=== PATIENT | male | born 1940 | race Caucasian/White ===

== ENCOUNTER 2017-09-26 06:35 | Inpatient (IN) | payer OTHER ==
[~2017-09-26] VITALS: Ht 172.7 cm; Wt 58.8 kg
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
--- NOTE | ~2017-09-26 | 2DMMODE ---
[facility] [address] [place] [address] 2 D/M-MODE ECHOCARDIOGRAM Name: MOONYEMAGALIE FRANCISCO JAVIER Room #: 211-P [facility] IN M.R.#: [id number] Admission: 09/26/17 Attend Phys: Irving Bunch, Discharge: Date of : 38 Date of Service: 09/27/17 1151 Report #: [id number] THIS REPORT FOR: //name// APPROVED REPORT Study performed: 09/27/2017 10:53:55 EXAM: Comprehensive 2D, Doppler, and color-flow Echocardiogram Patient Location: Bedside Room #: 211 Status: routine BSA: 1.71 BP: 143/68 mmHg Other Information Study Quality: Technically Difficult Technically limited study due to lung disease, uncooperative patient. Indications Dyspnea Chest Pain Hypertension/HDD 2D Dimensions RVDd: 26.97 mm LVEF(%): 71.87 (>50%) IVSd: 11.76 (7-11mm) LVOT Diam: 19.00 (18-24mm) LVDd: 42.07 mm PWd: 10.88 (7-11mm) LVDs: 24.94 (25-40mm) Aortic Root: 35.40 mm Shrestha's LVEF: 71.87 % Volumes Left Atrial Volume (Systole) Single Plane 4CH: 45.26 mL Single Plane 2CH: 37.47 mL LA ESV Index: 24.00 mL/m2 Aortic Valve AoV Peak Robel.: 1.17 m/s AO Peak Gr.: 5.49 mmHg LVOT Max P.61 mmHg LVOT Max V: 0.95 m/s SYDNEY Vmax: 2.30 cm2 [facility] [address] [place] [address] 2 D/M-MODE ECHOCARDIOGRAM Name: MOONEYMAGALIE JANGEST Room #: [facility] IN [facility].#: [id number] Admission: 09/26/17 Attend Phys: Irving Bunch, Discharge: Date of : 38 Date of Service: 09/27/17 1151 Report #: [id number] Mitral Valve E/A Ratio: 0.8 MV Decel. Time: 261.28 ms MV E Max Robel.: 0.60 m/s MV A Robel.: 0.76 m/s MV PHT: 75.77 ms IVRT: 124.57 ms Pulmonary Valve PV Peak Robel.: 1.30 m/s PV Peak Gr.: 6.79 mmHg Pulmonary Vein P Vein S: 0.30 m/s P Vein D: 0.68 m/s P Vein S/D Ratio: 0.44 Left Ventricle The left ventricle is normal size. There is normal LV segmental wall motion. There is normal left ventricular wall thickness. The left ventricular systolic function is normal. The left ventricular ejection fraction is within the normal range. LVEF is 60-65%. Mild diastolic dysfunction is present (impaired relaxation pattern). Right Ventricle The right ventricle is normal size. Right ventricular systolic function appears grossly normal. Atria The left atrium size is normal. The right atrium size is normal. Aortic Valve Aortic valve is mildly sclerotic No aortic regurgitation is present. There is no aortic valvular stenosis. Mitral Valve The mitral valve is normal in structure. There is no mitral valve regurgitation noted. No evidence of mitral valve stenosis. Tricuspid Valve The tricuspid valve is normal in structure. There is no tricuspid valve regurgitation noted. Unable to assess PA pressure. Pulmonic Valve The pulmonary valve is normal in structure. There is no pulmonic [facility] [address] [place] [address] 2 D/M-MODE ECHOCARDIOGRAM Name: MAGALIE MOONEY Room #: 211-P [facility] IN .R.#: [id number] Admission: 09/26/17 Attend Phys: Irving Bunch, Discharge: Date of : 38 Date of Service: 09/27/17 1151 Report #: [id number] valvular regurgitation. Great Vessels The aortic root is normal in size. Ascending aorta is not well visualized. The inferior vena cava is not visualized. Pericardium There is no pericardial effusion. <Conclusion> The left ventricular systolic function is normal. There is normal LV segmental wall motion. LVEF is 60-65%. Mild diastolic dysfunction Aortic valve is mildly sclerotic. No aortic valvular stenosis or insufficiency. The mitral valve is normal in structure. No mitral valve regurgitation noted. There is no pericardial effusion. <ELECTRONICALLY SIGNED> By: Kel Chen MD, FACC 09/27/17 1151 115 115 Kel Chen MD, FACC /INF
--- NOTE | ~2017-09-26 | EKG ---
[place] [address] [facility] [place] [address] ELECTROCARDIOGRAM REPORT Name: MOONEYMAGALIE Room #: 170-10 ADM IN M.R.#: [id number] Admission: 09/26/17 Attend Phys: Irving Bunch MD Discharge: Date of : 38 Report #: [id number] THIS REPORT FOR: //name// [facility] ED Test Date: 2017-09-26 Test Time: 06:57:25 Pat Name: MAGALIE MOONEY Department: Room: 170 Gender: M Icer Hand: JAMAL : 1940 Requested By: Elayne Rios Order Number: [id number] MD: Kel Chen Measurements Intervals [place] Rate: 59 P: 73 AK: 209 QRS: 74 QRSD: 140 T: 53 QT: 435 QTc: 431 Interpretive Statements Sinus rhythm Right bundle branch block Compared to ECG 11/15/2016 09:51:35 No significant changes Electronically Signed On 09-26-2017 8:44:30 DIRECTOR QUALITY SYSTEMS by Kel Chen [email or web address] <ELECTRONICALLY SIGNED> By: Kel Chen MD, [facility] 09/26/17 0844 D: 0157 0657 Kel Chen MD, FACC /EPI
--- NOTE | ~2017-09-26 | EKG ---
[address] [address] ELECTROCARDIOGRAM REPORT Name: MAGALIE MOONEY Room #: 211-P ADM IN M.R.#: [id number] Admission: 09/26/17 Attend Phys: Irving Bunch MD Discharge: Date of : 38 Report #: [id number] THIS REPORT FOR: //name// [facility] Test Date: 2017-09-27 Test Time: 09:30:16 Pat Name: MAGALIE MOONEY Department: Room: 211 P Gender: M Liquid Yeast Supervisor: JAMES : 1940 Requested By: Kel Chen Order Number: [id number] MD: Humberto Vasquez Measurements Intervals [place] Rate: 59 P: 74 ID: 191 QRS: 63 QRSD: 117 T: 67 QT: 425 QTc: 421 Interpretive Statements Sinus rhythm Nonspecific intraventricular conduction delay Low voltage, extremity leads Compared to ECG 09/26/2017 06:57:25 Intraventricular conduction delay now present Low QRS voltage now present Right bundle-branch block no longer present Electronically Signed On 09-27-2017 15:05:28 CIRCUIT RIDER by Humberto Vasquez [email or web address] <ELECTRONICALLY SIGNED> By: Humberto Vasquez MD 09/27/17 1505 0930 0930 Humberto Vasquez MD /EPI
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
--- NOTE | ~2017-09-26 | CATHLAB ---
[facility] [employer] [address] INVASIVE PROCEDURE REPORT Name: MAGALIE MOONEY Room #: 211-P [facility] IN M.R.#: [id number] Admission: 09/26/17 Attend Phys: Irving Bunch, Discharge: Date of : 38 Date of Service: 09/28/17 0907 Report #: [id number] THIS REPORT FOR: //name// APPROVED REPORT Patient Details Patient Status: In-Patient Room #: The patient is a 77 year-old male Event Personnel Kel Chen Performance Test Architect, Sabrina Daly, Earl Ferrell [place], Ariel RN almond pan finisher Performed Art Access - R femoral artery* 57815 Initial Mod Sed Same Phys/QHP Gr5y 402126 Coronary Angiography Only [id number] CORANG Hemostasis with Manual pressure Procedure Narrative The patient was brought urgently to the Cardiac Catheterization Laboratory and was prepped and draped in a sterile manner. The Right Groin^ was infiltrated with 1% Lidocaine subcutaneous anesthesia. A PINNACLE 6FR Sheath #[id number] sheath was inserted into the RFA^. Coronary angiography was performed using coronary diagnostic catheters. The right coronary system was accessed and visualized with a JR 4 catheter. The left coronary system was accessed and visualized with a JL 5 catheter. Hemostasis was obtained with manual pressure following sheath removal without any complications. The patient tolerated the procedure well and there were no complications associated with the procedure. A hematoma occurred. Intraoperative Conscious Sedation Sedation start time: 07:16 Case end Time: 07:43 Fentanyl 25.0 mcg Versed 0.5 mg Fluoro Time: 2.39 minutes Dose: DAP 138.00 cGycm2 138 mGy Contrast Type and Amount: Visipaque 50 ml Coronary Angiography The patient's coronary anatomy is right dominant. Diagnostic Cath Left Main 40% distal left main stenosis [facility] [address] [address] INVASIVE PROCEDURE REPORT Name: MAGALIE MOONEY Room #: 211-P [facility] IN M.R.#: [id number] Admission: 09/26/17 Attend Phys: Irving Bunch, Discharge: Date of : 38 Date of Service: 09/28/17 0907 Report #: [id number] LAD 75% ostial LAD stenosis followed by long, densely calcified 75% proximal stenosis Diagonal 1 small, free of significant disease Diagonal 2 small, normal Diagonal 3 small, normal Circumflex Single, large OM branch OM1 40-50% proximal Right Coronary very tortuous in proximal segement 85% mid RCA stenosis with moderate 30-40% distal plaquing R PDA 40% ostial PDA stenosis Left Ventriculography Left Ventriculography was not performed. Thoracic and ascending aorta were very tortuous and densely calcified. Hemodynamics The aortic pressure is 153/67 mmHg with a mean of 104 mmHg. Conclusion 1. Multivessel coronary artery disease 2. Densely calcified and tortuous ascending and thoracic aorta Recommendations Cardiac Rehabilitation Referral Aggressive Medical Therapy <ELECTRONICALLY SIGNED> By: Kel Chen MD, FACC 09/28/17906 6 6 Kel Chen MD, FACC /INF
--- NOTE | ~2017-09-26 | HC ---
[facility] [place] [address] CONSULTATION Name: MAGALIE MOONEY Room #: 211-P [facility] IN M.R.#: [id number] Admission: 09/26/17 Attend Phys: Irving Bunch MD Discharge: 10/02/17 Date of : 38 Report #: [id number] THIS REPORT FOR: //name// CC: Mai Bunch REASON FOR CONSULTATION: Elevated creatinine, known chronic kidney disease. REASON FOR PRESENTATION: Shortness of breath and chest pain. HISTORY OF PRESENT ILLNESS: A 77-year-old with past medical history of end-stage renal disease, hypertension. He sees Dr. Hui in my clinic. His creatinine has been around the range of 4-4.5 as an outpatient. He was seen by Dr. Patel back in 11/2016 here in the hospital. He is known to have hypertension. He had some left-sided chest pain for which he presented to the emergency room for further evaluation and management. No active other symptoms. Specifically, no nausea or vomiting. This was associated with some weakness. No cough or hemoptysis. The chest pain was left-sided, intermittent of pressure-like characteristic. Nuclear scan was done yesterday and was intermediate probability of ischemia. I am being asked to evaluate him for his chronic kidney disease. Of note is that the patient has a functioning right-sided AV fistula. PAST MEDICAL HISTORY: 1. Hypertension. 2. End-stage renal disease. 3. Anemia. ALLERGIES: PENICILLIN. FAMILY HISTORY: Significant for hypertension. SOCIAL HISTORY: . He used to work in a [employer]. He quit smoking in 2009. MEDICATIONS: 1. Metoprolol. 2. Valsartan. 3. Spironolactone. 4. Amlodipine. REVIEW OF SYSTEMS: GENERAL: No fever or chills. CARDIOVASCULAR: Significant for chest pain as per the history of present illness. PULMONARY: No cough or hemoptysis. GASTROINTESTINAL: No nausea or vomiting. [facility] [address] [place] [address] CONSULTATION Name: MAGALIE MOONEY Room #: 211-P [facility] IN ..#: [id number] Admission: 09/26/17 Attend Phys: Irving Bunch MD Discharge: 10/02/17 Date of : 38 Report #: [id number] GENITOURINARY: No frequency, no urgency. PHYSICAL EXAMINATION: VITAL SIGNS: Temperature 36.4, pulse rate 65, respiratory rate 18, blood pressure 140/60. HEAD AND NECK: No jugular venous distention, no bruit, no thyromegaly. CHEST: Clear to auscultation bilaterally. CARDIOVASCULAR: Regular with no rub. ABDOMEN: Soft, nontender. LOWER EXTREMITIES: No edema. LABORATORY VALUES: Reviewed. Sodium 140, potassium 6, chloride 108, BUN 66, creatinine 5.4. Hemoglobin 12. ASSESSMENT, IMPRESSION AND PLAN: 1. Chronic kidney disease, end-stage renal disease. 2. Hypertension. 3. Nonspecific chest pain. 4. The patient seems to be at his baseline; however, he does have some sort of hyperkalemia and I will accordingly treat. 5. Discontinue IV fluid. 6. Stay off valsartan and spironolactone for now given his hyperkalemia. 7. Blood pressure control. 8. Discussed with the patient the risk of contrast-induced nephropathy and the fact that he might go on dialysis if he receives contrast. We will wait for further cardiac recommendations and act upon accordingly. <ELECTRONICALLY SIGNED> By: Raymundo Spaulding MD 10/03/17 0939 0904 1114 Raymundo Spaulding MD /nt
[~2017-09-26 06:35] MED LIST: ACYCLOVIR 400400 MG PO; ALDACTONE25 MG PO; AMLODIPINE BESY10 MG PO; DIOVAN 80 MG TA80 M1 PO; FISH OIL 1,001000 M2 PO; PRED FORTE 1% EY5 M1 OP; TOPROL XL50 MG PO; VITAMIN D1000 UNI1 PO
[2017-09-26 06:36] VITALS: BP 138/61
[2017-09-26 07:08] LABS: ABSOLUTE NEUTROPHILS 4.5 thou/uL (1.4-8.2); BASOPHILS 1.4 % (0.0-2.0); EOSINOPHILS 7.7 % (0.0-3.0); HEMATOCRIT 31.5 % (42.0-52.0); HEMOGLOBIN 10.9 gm/dL (14.0-18.0); MCH 29.8 pg (26.0-34.0); MCHC 34.7 g/dL (28.0-37.0); MONOCYTES 7.7 % (1.0-8.0); PLATELET COUNT 200 thou/uL (150-400); POLYS 61.2 % (36.0-66.0); RBC 3.66 mil/uL (4.50-6.00); RDW 13.8 % (10.5-14.5); WBC 7.4 thou/uL (4.0-11.0)
[2017-09-26 07:25] LABS: ANION GAP 10 mmol/L (7-16); BUN 68 mg/dL (7-18); CALCIUM 9.7 mg/dL (8.5-10.1); CHLORIDE 108 mmol/L (98-107); CO2 23 mmol/L (21-32); CREATININE 5.4 mg/dL (0.7-1.3); GLUCOSE 104 mg/dL (74-106); POTASSIUM 5.2 mmol/L (3.5-5.1); SODIUM 141 mmol/L (136-145)
[2017-09-26 07:34] LABS: TROPONIN-I < 0.04 ng/mL (<0.06)
[2017-09-26 09:45] VITALS: BP 127/60
[2017-09-26] MEDS ORDERED: OMEPRAZOLE 20 M20 M1 PO (09:52)
[2017-09-26] MEDS ORDERED: FLONASE 0.05%50 MCG NASAL (09:52)
[2017-09-26] MEDS ORDERED: LIPITOR 20 MG T20 M1 PO (09:52)
[2017-09-26] MEDS ORDERED: MIRALAX17 GM PO (09:53)
[2017-09-26] MEDS ORDERED: CLARITIN10 MG PO (09:53)
[2017-09-26 19:04] VITALS: BP 148/72
[2017-09-26 19:20] VITALS: BP 147/76
[2017-09-27 00:53] VITALS: BP 157/72
[2017-09-27 06:11] VITALS: BP 143/68
[2017-09-27 08:20] LABS: MCH 29.8 pg (26.0-34.0); MCHC 33.3 g/dL (28.0-37.0); MCV 89.5 fL (80.0-100.0); RBC 4.02 mil/uL (4.50-6.00); RDW 13.8 % (10.5-14.5); WBC 9.1 thou/uL (4.0-11.0)
[2017-09-27 08:31] LABS: CALCIUM 9.7 mg/dL (8.5-10.1); CREATININE 5.4 mg/dL (0.7-1.3)
[2017-09-27 09:31] LABS: CHOLESTEROL 262 mg/dL (<200); HDL CHOLESTEROL 43 mg/dL (>40); LDL CHOLESTEROL 191 mg/dL (<100); TC:HDL 6.1 Ratio (Not establshd); TRIGLYCERIDE 142 mg/dL (<150); VLDL 28 mg/dL (<40)
[2017-09-27 09:49] VITALS: BP 134/70
[2017-09-27 11:37] VITALS: BP 128/55
[2017-09-27 15:32] VITALS: BP 141/65
[2017-09-27 20:30] VITALS: BP 143/71
[2017-09-28] VITALS: BP 123/70
[2017-09-28 04:30] VITALS: BP 152/84
[2017-09-28 04:47] LABS: ALBUMIN 3.2 g/dL (3.4-5.0); CALCIUM 8.9 mg/dL (8.5-10.1); CREATININE 5.3 mg/dL (0.7-1.3); PHOSPHORUS 4.8 mg/dL (2.5-4.9); POTASSIUM 4.9 mmol/L (3.5-5.1)
[2017-09-28 11:41] VITALS: BP 149/62
[2017-09-28 15:09] VITALS: BP 127/67
[2017-09-28 19:56] VITALS: BP 121/71
[2017-09-29 04:24] VITALS: BP 132/69
[2017-09-29 05:25] LABS: BASOPHILS 0.5 % (0.0-2.0); EOSINOPHILS 4.7 % (0.0-3.0); HEMATOCRIT 29.1 % (42.0-52.0); LYMPHOCYTES 19.8 % (24.0-44.0); MCH 29.9 pg (26.0-34.0); MCHC 34.3 g/dL (28.0-37.0); MONOCYTES 6.4 % (1.0-8.0); PLATELET COUNT 220 thou/uL (150-400); POLYS 68.6 % (36.0-66.0); RBC 3.34 mil/uL (4.50-6.00); RDW 13.8 % (10.5-14.5); WBC 8.8 thou/uL (4.0-11.0)
[2017-09-29 05:30] LABS: CALCIUM 8.9 mg/dL (8.5-10.1); CREATININE 5.3 mg/dL (0.7-1.3); POTASSIUM 4.3 mmol/L (3.5-5.1)
[2017-09-29 07:50] VITALS: BP 134/65
[2017-09-29 11:13] VITALS: BP 122/64
[2017-09-29 15:00] VITALS: BP 111/66
[2017-09-29] MEDS ORDERED: ATORVASTATIN CA40 MG PO (15:24)
[2017-09-29] MEDS ORDERED: IMDUR 60 MG TAB60 M1 PO (15:24)
[2017-09-29 19:46] VITALS: BP 117/58
[2017-09-30 04:35] VITALS: BP 129/74
[2017-09-30 05:37] LABS: ALBUMIN 3.4 g/dL (3.4-5.0); CALCIUM 8.8 mg/dL (8.5-10.1); CREATININE 5.3 mg/dL (0.7-1.3); PHOSPHORUS 5.4 mg/dL (2.5-4.9); POTASSIUM 4.2 mmol/L (3.5-5.1)
[2017-09-30 08:10] VITALS: BP 137/70
[2017-09-30 19:47] VITALS: BP 136/69
[2017-10-01 03:20] LABS: ABSOLUTE NEUTROPHILS 4.8 thou/uL (1.4-8.2); BASOPHILS 0.7 % (0.0-2.0); EOSINOPHILS 6.1 % (0.0-3.0); HEMATOCRIT 25.6 % (42.0-52.0); HEMOGLOBIN 8.8 gm/dL (14.0-18.0); LYMPHOCYTES 22.7 % (24.0-44.0); MCH 29.8 pg (26.0-34.0); MCHC 34.3 g/dL (28.0-37.0); MCV 86.9 fL (80.0-100.0); MONOCYTES 7.8 % (1.0-8.0); PLATELET COUNT 192 thou/uL (150-400); POLYS 62.7 % (36.0-66.0); RBC 2.94 mil/uL (4.50-6.00); RDW 13.9 % (10.5-14.5); WBC 7.7 thou/uL (4.0-11.0)
[2017-10-01 03:39] LABS: CALCIUM 8.6 mg/dL (8.5-10.1); CREATININE 5.2 mg/dL (0.7-1.3); POTASSIUM 4.1 mmol/L (3.5-5.1)
[2017-10-01 04:23] VITALS: BP 141/61
[2017-10-01 08:00] VITALS: BP 128/57
[2017-10-01 09:07] LABS: GLOBULIN TOTAL 2.9 g/dL (2.2-3.9); M-SPIKE Not Observed g/dL (Not Observed)
[2017-10-01 12:00] VITALS: BP 114/51
[2017-10-01 16:00] VITALS: BP 110/61
[2017-10-01 21:06] VITALS: BP 130/65
[2017-10-02 04:23] LABS: ALBUMIN 3.3 g/dL (3.4-5.0); CALCIUM 8.8 mg/dL (8.5-10.1); CREATININE 5.1 mg/dL (0.7-1.3); PHOSPHORUS 4.9 mg/dL (2.5-4.9); POTASSIUM 4.1 mmol/L (3.5-5.1)
[2017-10-02 05:12] VITALS: BP 138/72
[2017-10-02 08:51] VITALS: BP 164/80
[2017-10-02 09:04] VITALS: BP 164/80
[2018-02-28] MEDS ORDERED: RANEXA500 MG PO (13:01)
[2018-02-28] MEDS ORDERED: SYSTANE 0.3-0.1 EACH OPHTHALMIC (13:01)
[2018-02-28] MEDS ORDERED: VITAMIN D31000 UNI2 PO (13:02)
[2018-02-28] MEDS ORDERED: TYLENOL325 M1 PO (13:03)
[2018-02-28] MEDS ORDERED: NEPHROCAPS SOFT1 CAP PO (13:04)
[2018-02-28] MEDS ORDERED: MIRALAX17 G1 PO (13:06)
[2018-02-28] MEDS ORDERED: MILK OF MA400 MG/5 M PO ×2 (13:07→13:08)
[2018-02-28] MEDS ORDERED: CITRATE OF MAG296 M1 PO (13:07)
== END 2017-10-02 13:55 | DRG 286 ==
LOC: ER 06:35 → EROBS 07:53 → 2N 07:53 → EROBS 13:40 → 2N 18:56
PROVIDERS: Emergency Medicine; Family Medicine; Hospitalist; Internal Medicine; Psychiatry & Neurology Neurology
PROC: 4A023N7 Measurement of Cardiac Sampling and Pressure, Left Heart, Percutaneous Approach (ICD-10-PCS; principal; 2017-09-28)
PROC: B2111ZZ Fluoroscopy of Multiple Coronary Arteries using Low Osmolar Contrast (ICD-10-PCS; principal; 2017-09-28)
DX: I25.110 Atherosclerotic heart disease of native coronary artery with unstable angina pectoris (principal); N18.6 End stage renal disease; I12.0 Hypertensive chronic kidney disease with stage 5 chronic kidney disease or end stage renal disease; N17.9 Acute kidney failure, unspecified; E87.5 Hyperkalemia; E78.5 Hyperlipidemia, unspecified; Z96.1 Presence of intraocular lens; R09.89 Other specified symptoms and signs involving the circulatory and respiratory systems; D63.8 Anemia in other chronic diseases classified elsewhere; J44.9 Chronic obstructive pulmonary disease, unspecified; Z98.42 Cataract extraction status, left eye; Z91.81 History of falling; Z79.899 Other long term (current) drug therapy; Z88.0 Allergy status to penicillin; Z87.891 Personal history of nicotine dependence; Z82.49 Family history of ischemic heart disease and other diseases of the circulatory system; Z98.41 Cataract extraction status, right eye
CPT/HCPCS: 10081

== ENCOUNTER 2018-01-08 04:56 | Inpatient (IN) | payer OTHER ==
[~2018-01-08] VITALS: Ht 172.7 cm; Wt 58.1 kg
--- NOTE | ~2018-01-08 | EKG ---
[address] [place] [address] ELECTROCARDIOGRAM REPORT Name: IBRAHIMA MOONEYTALAT VILAEST Room #: 219-P ADM IN M.R.#: [id number] Admission: 01/08/18 Attend Phys: Irving Bunch MD Discharge: Date of : 38 Report #: [id number] THIS REPORT FOR: //name// [facility] ED Test Date: 2018-01-08 Test Time: 05:14:01 Pat Name: MAGALIE MOONEY Department: Room: 219 Gender: M Integrated Logistics Support Manager: HELEN : 1940 Requested By: Chilo Carrizales Order Number: [id number] MD: Kel Chen Measurements Intervals [place] Rate: 67 P: 76 SD: 206 QRS: 81 QRSD: 154 T: 44 QT: 465 QTc: 491 Interpretive Statements Sinus rhythm Right bundle branch block Compared to ECG 09/27/2017 09:30:16 Right bundle-branch block now present Electronically Signed On 01-08-2018 9:12:28 CDT by Kel Chen [email or web address] <ELECTRONICALLY SIGNED> By: Kel Chen MD, [facility] 01/08/1812 Kel Chen MD, [facility] /EPI
--- NOTE | ~2018-01-08 | HC ---
[facility] [place] [address] CONSULTATION Name: MAGALIE MOONEY Room #: 219-P [facility] IN M.R.#: [id number] Admission: 01/08/18 Attend Phys: Irving Bunch MD Discharge: 01/11/18 Date of : 38 Report #: [id number] THIS REPORT FOR: //name// CC: Neil Bunch DATE OF SERVICE: 01/08/2018 ATTENDING PHYSICIAN: Dr. Bunch. REASON FOR CONSULTATION: End-stage renal disease. HISTORY OF PRESENT ILLNESS: This 77-year-old gentleman with end-stage renal disease, has been on dialysis for 6-7 weeks. He has been quite weak actually for several months, apparently got a bit better when he had advanced health care in October, but with dialysis, particularly post-dialysis, has been even weaker and had several falls and comes in for further evaluation. PAST MEDICAL HISTORY: Longstanding hypertension, end-stage renal disease, anemia. Rather severe coronary artery disease, multivessel, but felt to be a candidate only for medical therapy, turned down for surgical therapy by the Cardiothoracic Service. SOCIAL HISTORY: He is a former smoker, but he quit. REVIEW OF SYSTEMS: GENERAL: He has been very weak. EYES: His vision is okay. ENT: Hearing okay, swallows okay. ENDOCRINE: No diabetes. RESPIRATORY: Does get a little bit short-winded. CARDIAC: Gets occasional chest pain, possibly angina. No swelling in the legs. GASTROINTESTINAL: No nausea, vomiting, diarrhea. GENITOURINARY: Continues to make quite a bit of urine. MUSCULOSKELETAL: No joint pain or arthritis. SKIN: No skin rashes. NEUROLOGIC: Generalized weakness, but no seizure, syncope or stroke. PHYSICAL EXAMINATION: GENERAL: The patient is a somewhat weak appearing elderly gentleman. SKIN: Unremarkable. SKELETAL: Nonobese. HEENT: Extraocular movements are full. No scleral icterus. Hearing and vision intact. Mucous membranes moist. Tongue, buccal mucosa benign. NECK: Supple. CHEST: Clear to auscultation. [facility] [address] [facility] [place] [address] CONSULTATION Name: MAGALIE MOONEY Room #: 219-P [facility] IN M.R.#: [id number] Admission: 01/08/18 Attend Phys: Irving Bunch MD Discharge: 01/11/18 Date of : 38 Report #: [id number] HEART: Regular. ABDOMEN: Soft and nontender, without bruits, masses or organomegaly. EXTREMITIES: Show no peripheral edema. NEUROLOGIC: Shows mild generalized weakness. LABORATORY DATA: Hemoglobin 10.4. Sodium 139, potassium 3.9, chloride bicarbonate 25, BUN 78, creatinine 9.3. Troponin I is 0.51, which is elevated from 1.04 previously. CPK is not measured. ASSESSMENT: 1. End-stage renal disease. We will continue dialysis. We will try cooler dialysate, no ultrafiltration today and see how he does with that. 2. Generalized weakness, unknown etiology. 3. Severe coronary artery disease, multivessel. 4. Elevated troponin. <ELECTRONICALLY SIGNED> By: Neil Hawthorne MD 01/14/18 1022 1110 1823 Neil Hawthorne MD /nt
[~2018-01-08 04:56] MED LIST changes: +ATORVASTATIN CA40 MG PO; +CLARITIN10 MG PO; +FLONASE 0.05%50 MCG NASAL; +IMDUR 60 MG TAB60 M1 PO; +LIPITOR 20 MG T20 M1 PO; +MIRALAX17 GM PO; +OMEPRAZOLE 20 M20 M1 PO
[2018-01-08 05:03] VITALS: BP 88/55
[2018-01-08 05:47] LABS: ABSOLUTE NEUTROPHILS 7.8 thou/uL (1.4-8.2); BASOPHILS 0.9 % (0.0-2.0); EOSINOPHILS 0.3 % (0.0-3.0); HEMATOCRIT 30.8 % (42.0-52.0); HEMOGLOBIN 10.4 gm/dL (14.0-18.0); LYMPHOCYTES 13.2 % (24.0-44.0); MCH 29.4 pg (26.0-34.0); MCV 86.7 fL (80.0-100.0); MONOCYTES 6.5 % (1.0-8.0); PLATELET COUNT 253 thou/uL (150-400); POLYS 79.1 % (36.0-66.0); RBC 3.55 mil/uL (4.50-6.00); RDW 15.6 % (10.5-14.5); WBC 9.9 thou/uL (4.0-11.0)
[2018-01-08 05:50] LABS: CALCIUM 9.5 mg/dL (8.5-10.1); CREATININE 9.3 mg/dL (0.7-1.3); POTASSIUM 3.9 mmol/L (3.5-5.1)
[2018-01-08 05:59] LABS: TROPONIN-I 0.51 ng/mL (<0.06)
[2018-01-08 06:05] LABS: URINE BILIRUBIN NEGATIVE (Negative); URINE BLOOD 3+ (Negative); URINE CLARITY CLEAR; URINE COLOR YELLOW; URINE GLUCOSE-RANDOM* NEGATIVE (Negative); URINE KETONES NEGATIVE (Negative); URINE LEUKOCYTES-REFLEX NEGATIVE (Negative); URINE NITRITE-REFLEX NEGATIVE (Negative); URINE PROTEIN (DIPSTICK) 2+ (Negative); URINE UROBILINOGEN 0.2 E.U./dl (0.2-1.0)
[2018-01-08 06:15] LABS: CASTS None Seen /LPF (None Seen)
[2018-01-08 06:16] LABS: BACTERIA-REFLEX 1-9 Few /HPF (None Seen); CRYSTALS None Seen /LPF (None Seen); SQUAMOUS 0-3 Few /LPF (0-3); URINE RBC 0-2 Rare /HPF (0-2); URINE WBC-REFLEX 0-5 Rare /HPF (0-5)
[2018-01-08 07:41] LABS: APTT 24.5 Seconds (24.5-32.8); INR 1.1; PROTIME 10.4 Seconds (9.3-11.4)
[2018-01-08 07:56] VITALS: BP 102/60
[2018-01-08 08:37] VITALS: BP 114/51
[2018-01-08 10:01] VITALS: BP 123/66
[2018-01-08] MEDS ORDERED: ASPIR 8181 MG PO (14:53)
[2018-01-08] MEDS ORDERED: NITROSTAT0.4 M1 SUBLING (14:56)
[2018-01-08] MEDS ORDERED: PEPCID20 MG PO (14:57)
[2018-01-08] MEDS ORDERED: SYSTANE1 EACH OPHTHALMIC (14:59)
[2018-01-08] MEDS ORDERED: GAS-X125 M1 PO (15:00)
[2018-01-08] MEDS ORDERED: CIPROFLOXIN HC2.5 M1 OPHTHALMIC (15:17)
[2018-01-08 20:28] VITALS: BP 120/58
[2018-01-08 23:33] VITALS: BP 131/61
[2018-01-09 04:14] LABS: ALBUMIN 2.7 g/dL (3.4-5.0); PHOSPHORUS 3.6 mg/dL (2.5-4.9); POTASSIUM 4.3 mmol/L (3.5-5.1)
[2018-01-09 04:16] LABS: CREATININE 5.2 mg/dL (0.7-1.3)
[2018-01-09 04:22] VITALS: BP 149/75
[2018-01-09 08:04] VITALS: BP 143/56
[2018-01-09 11:23] VITALS: BP 103/68
[2018-01-09 19:29] VITALS: BP 105/57
[2018-01-10 04:06] VITALS: BP 134/72
[2018-01-10 08:41] VITALS: BP 140/66
[2018-01-10 12:48] VITALS: BP 123/74
[2018-01-10 16:22] VITALS: BP 114/57
[2018-01-10 19:56] VITALS: BP 118/66
[2018-01-11 04:46] VITALS: BP 135/67
[2018-01-11 04:57] LABS: HEMATOCRIT 31.3 % (42.0-52.0); HEMOGLOBIN 10.4 gm/dL (14.0-18.0); MCH 29.1 pg (26.0-34.0); MCHC 33.1 g/dL (28.0-37.0); MCV 87.8 fL (80.0-100.0); RBC 3.56 mil/uL (4.50-6.00); RDW 15.7 % (10.5-14.5); WBC 8.2 thou/uL (4.0-11.0)
[2018-01-11] MEDS ORDERED: RANEXA500 MG PO (07:24)
[2018-01-11 11:00] VITALS: BP 106/61
== END 2018-01-11 14:15 | DRG 280 ==
LOC: ER 04:56 → 2N 06:49 → EROBS 06:49 → 2N 08:53
PROVIDERS: Emergency Medicine; Internal Medicine Nephrology
DX: I21.4 Non-ST elevation (NSTEMI) myocardial infarction (principal); N18.6 End stage renal disease; I12.0 Hypertensive chronic kidney disease with stage 5 chronic kidney disease or end stage renal disease; N39.0 Urinary tract infection, site not specified; I25.10 Atherosclerotic heart disease of native coronary artery without angina pectoris; J44.9 Chronic obstructive pulmonary disease, unspecified; Z96.1 Presence of intraocular lens; I95.9 Hypotension, unspecified; E78.5 Hyperlipidemia, unspecified; H10.9 Unspecified conjunctivitis; Z99.2 Dependence on renal dialysis; Z79.82 Long term (current) use of aspirin; Z79.899 Other long term (current) drug therapy; Z98.42 Cataract extraction status, left eye; Z98.41 Cataract extraction status, right eye; Z87.891 Personal history of nicotine dependence; Z88.0 Allergy status to penicillin; Z88.8 Allergy status to other drugs, medicaments and biological substances
CPT/HCPCS: 10081; 32100

== ENCOUNTER 2018-01-18 11:47 | Inpatient (IN) | payer OTHER ==
[~2018-01-18] VITALS: Ht 172.7 cm; Wt 62.1 kg
--- NOTE | ~2018-01-18 | O ---
[facility] [place] [address] OPERATIVE REPORT Name: MAGALIE MOONEY Room #: 429-P [facility] IN M.R.#: [id number] Admission: 01/18/18 Attend Phys: Oleg Jo MD Discharge: Date of : 38 Report #: [id number] THIS REPORT FOR: //name// CC: Oleg Bunch DATE OF SERVICE: 01/19/2018 PREOPERATIVE DIAGNOSIS: Left hip femoral neck fracture. POSTOPERATIVE DIAGNOSIS: Left hip femoral neck fracture. PROCEDURE: Left hip hemiarthroplasty. SURGEON: Maykel Baca M.D. ETL SOFTWARE ENGINEER: Hannah Castillo. ANESTHESIA: General. DRAINS: No drains. TOURNIQUET TIME: Zero. ESTIMATED BLOOD LOSS: 500 mL. COMPLICATIONS: There were no complications. DESCRIPTION OF PROCEDURE: The patient was brought to the operating room where he was placed under general anesthesia. Once under adequate general anesthesia, he was placed through a lateral decubitus position on the operative table. The left hip was then prepped and draped in a sterile manner. A 14 cm longitudinal incision was made overlying the greater trochanter of the hip to dissect down to the tensor fascia, which was incised in line with the incision exposing the posterior hip. A posterior approach to the hip was then made elevating the piriformis along with the posterior external rotators off the posterior femoral neck. The joint capsule was opened, and the femoral neck fracture was then exposed. The femoral head was extracted utilizing a Orta elevator. Subsequently, the femoral neck was cut to length with an oscillating saw. Subsequent reaming and broaching to a size 9 stem and trials for a size 9 stem with a +0 neck and a 49 mm head was then achieved. Once complete, this was stable to abduction, internal rotation, stretches. This was then removed. The wound was irrigated copiously, and the final components were then placed, which was a size 9 stem, +0 neck and 49 mm femoral head. The wound was irrigated copiously, and the capsular layer was closed with #2 FiberWire. #5 FiberWire was used to repair the piriformis back to its position in the fossa. The wound [address] [address] OPERATIVE REPORT Name: JESICAMAGALIE FRANCISCO JAVIER Room #: 429-P [facility] IN M.R.#: [id number] Admission: 01/18/18 Attend Phys: Oleg Jo MD Discharge: Date of : 38 Report #: [id number] was irrigated once again copiously. #1 Vicryl was used in the tensor fascia, 2-0 Vicryl in subcutaneous tissues and arin were used for the skin. The wounds were dressed with Xeroform, 4 x 4s, and sterile soft compressive dressing was placed. There were no complications from the procedure. The patient tolerated the procedure well and went to the recovery room without incident. <ELECTRONICALLY SIGNED> By: Maykel Baca MD 01/19/18 1149 1030 1059 Maykel Baca MD /viola
--- NOTE | ~2018-01-18 | HC ---
[facility] [place] [address] CONSULTATION Name: MAGALIE MOONEY Room #: 220-P ADM IN M.R.#: [id number] Admission: 01/18/18 Attend Phys: Irving Bunch MD Discharge: Date of : 38 Report #: [id number] THIS REPORT FOR: //name// CC: Oleg Bunch REASON FOR CONSULTATION: End-stage renal disease. REASON FOR PRESENTATION: Post-fall HISTORY OF PRESENT ILLNESS: A 77-year-old who presented from a alf facility after a fall. He was found to have right hip fracture and admitted for further evaluation and management. He is well known to me. He has end-stage renal disease due to hypertension. He recently started dialysis. He dialyzes every Sunday, and Sunday utilizing his AV fistula. He suffers from major ongoing depression and psych issues and is not communicative. is at bedside. She stated that while in his rehab facility, he fell off the wheelchair and was sent for further evaluation and management where he was found to have the above-mentioned finding. I am being asked to manage before his planned surgery. PAST MEDICAL HISTORY: 1. End-stage renal disease. 2. Hypertension. 3. Coronary artery disease with no intervention. 4. Anemia. ALLERGIES: PENICILLIN. FAMILY HISTORY: Hypertension. SOCIAL HISTORY: He is . He used to work for the [employer]. He quit smoking in 2009. He currently resides in a nursing facility. MEDICATIONS: 1. Famotidine. 2. Lorazepam. 3. Oxycodone. 4. Ranexa. 5. Nitroglycerin. 6. Aspirin. REVIEW OF SYSTEMS: GENERAL: No fever or chills. CARDIOVASCULAR: No chest pain or palpitation. PULMONARY: No cough or hemoptysis. [facility] [address] [place] [address] CONSULTATION Name: JESICAMAGALIE FRANCISCO JAVIER Room #: 220-P [facility] IN ..#: [id number] Admission: 01/18/18 Attend Phys: Irving Bunch MD Discharge: Date of : 38 Report #: [id number] GASTROINTESTINAL: No nausea or vomiting. MUSCULOSKELETAL: As per the history of present illness. PHYSICAL EXAMINATION: VITAL SIGNS: Temperature 37.1, pulse rate 74, blood pressure 149/74. HEAD AND NECK: No jugular venous distention. CHEST: No crackles. CARDIOVASCULAR: Regular, with no rub detected. ABDOMEN: Soft, nontender with no hepatosplenomegaly. LOWER EXTREMITIES: No edema, with intact peripheral pulses Tender left hip area. LABORATORY DATA: Reviewed. Hemoglobin 9.8. Sodium 135, potassium 4, BUN 41, creatinine 6.2. IMAGIN. Chest x-ray reviewed. No acute pulmonary edema. 2. Hip x-ray reviewed, consistent with a fracture. ASSESSMENT, IMPRESSION AND PLAN: 1. End-stage renal disease. 2. Hypertension. 3. Status post fall with left hip fracture. 4. We will coordinate care with the orthopedic team. He should be dialyzing today before surgery, and he is okay to proceed with the planned surgery, and I will decide about dialysis either before or after. 5. Continue his usual medications. <ELECTRONICALLY SIGNED> By: Raymundo Spaulding MD 01/23/18 0817 0755 0857 Raymundo Spaulding MD /nt
[~2018-01-18 11:47] MED LIST changes: +ASPIR 8181 MG PO; +CIPROFLOXIN HC2.5 M1 OPHTHALMIC; +GAS-X125 M1 PO; +NITROSTAT0.4 M1 SUBLING; +PEPCID20 MG PO; +RANEXA500 MG PO; +SYSTANE1 EACH OPHTHALMIC
[2018-01-18 11:50] VITALS: BP 144/70
[2018-01-18] MEDS ORDERED: PERCOCET PO (12:49)
[2018-01-18] MEDS ORDERED: ATIVAN1 MG PO (12:50)
[2018-01-18 13:20] LABS: HEMATOCRIT 28.7 % (42.0-52.0); HEMOGLOBIN 9.8 gm/dL (14.0-18.0); MCH 29.4 pg (26.0-34.0); MCHC 34.2 g/dL (28.0-37.0); RBC 3.33 mil/uL (4.50-6.00); RDW 15.6 % (10.5-14.5); WBC 9.5 thou/uL (4.0-11.0)
[2018-01-18 13:41] LABS: APTT 27.7 Seconds (24.5-32.8); INR 1.1; PROTIME 11.1 Seconds (9.3-11.4)
[2018-01-18 13:48] VITALS: BP 144/70
[2018-01-18 14:51] LABS: CALCIUM 8.7 mg/dL (8.5-10.1); CREATININE 5.1 mg/dL (0.7-1.3)
[2018-01-18 14:56] LABS: TOTAL BILIRUBIN 0.6 mg/dL (<0.1-1.0); TOTAL PROTEIN 6.6 g/dL (6.4-8.2)
[2018-01-18 15:29] VITALS: BP 140/73
[2018-01-18 19:38] VITALS: BP 104/83
[2018-01-19 04:27] VITALS: BP 149/74
[2018-01-19 04:28] LABS: HEMATOCRIT 29.3 % (42.0-52.0); HEMOGLOBIN 9.8 gm/dL (14.0-18.0); MCHC 33.4 g/dL (28.0-37.0); MCV 86.7 fL (80.0-100.0); RBC 3.38 mil/uL (4.50-6.00); RDW 15.2 % (10.5-14.5); WBC 9.7 thou/uL (4.0-11.0)
[2018-01-19 04:44] LABS: CALCIUM 8.7 mg/dL (8.5-10.1)
[2018-01-19 04:49] LABS: CREATININE 6.2 mg/dL (0.7-1.3)
[2018-01-19 08:10] VITALS: BP 150/56
[2018-01-19 19:55] VITALS: BP 133/51
[2018-01-19 23:53] VITALS: BP 142/60
[2018-01-20 03:35] VITALS: BP 132/53
[2018-01-20 07:40] VITALS: BP 140/44
[2018-01-20 16:13] VITALS: BP 122/49
[2018-01-20 20:30] VITALS: BP 141/56
[2018-01-20 20:45] VITALS: BP 141/56
[2018-01-21 04:16] VITALS: BP 139/57
[2018-01-21 07:15] VITALS: BP 128/53
[2018-01-21 08:00] VITALS: BP 149/67
[2018-01-21 17:00] VITALS: BP 149/67
[2018-01-21 20:00] VITALS: BP 148/71
[2018-01-22 04:37] VITALS: BP 158/75
[2018-01-22 15:07] LABS: HEP B SURFACE Ab(ANTI-HBS Non Reactive (())
[2018-01-22 15:17] VITALS: BP 127/51
[2018-01-22 16:12] LABS: HBsAG CONFIRMATION Positive (()); HEPATITIS B SURFACE AG Confirm. indicated (Negative)
[2018-01-22 19:54] VITALS: BP 122/66
[2018-01-22 21:01] VITALS: BP 114/61
[2018-01-25 09:13] LABS: HEPATITIS B SURFACE AG Confirm. indicated (Negative)
== END 2018-01-23 12:25 | DRG 469 ==
LOC: ER 11:47 → 4E 13:14 → EROBS 13:14 → 4E 15:15 → SICU 01-22 18:47
PROVIDERS: Emergency Medicine; Hospitalist; Specialist
PROC: 0SRS01Z Replacement of Left Hip Joint, Femoral Surface with Metal Synthetic Substitute, Open Approach (ICD-10-PCS; principal; 2018-01-19)
PROC: 5A1D70Z Performance of Urinary Filtration, Intermittent, Less than 6 Hours Per Day (ICD-10-PCS; principal; 2018-01-19)
PROC: 5A1D70Z Performance of Urinary Filtration, Intermittent, Less than 6 Hours Per Day (ICD-10-PCS; 2018-01-21)
PROC: 5A1D70Z Performance of Urinary Filtration, Intermittent, Less than 6 Hours Per Day (ICD-10-PCS; 2018-01-22)
DX: S72.012A Unspecified intracapsular fracture of left femur, initial encounter for closed fracture (principal); N18.6 End stage renal disease; I12.0 Hypertensive chronic kidney disease with stage 5 chronic kidney disease or end stage renal disease; Z96.1 Presence of intraocular lens; I25.10 Atherosclerotic heart disease of native coronary artery without angina pectoris; W05.0XXA Fall from non-moving wheelchair, initial encounter; Z98.42 Cataract extraction status, left eye; Z98.41 Cataract extraction status, right eye; Y93.89 Activity, other specified; Y92.129 Unspecified place in nursing home as the place of occurrence of the external cause; Y99.8 Other external cause status; Z87.81 Personal history of (healed) traumatic fracture; Z79.82 Long term (current) use of aspirin; Z79.899 Other long term (current) drug therapy; Z99.2 Dependence on renal dialysis; Z87.891 Personal history of nicotine dependence; Z88.0 Allergy status to penicillin; Z88.8 Allergy status to other drugs, medicaments and biological substances; Z82.49 Family history of ischemic heart disease and other diseases of the circulatory system
CPT/HCPCS: 10183; 15002; 32100; 50101; 50382; 50414; 50445; 50939; 51412; 53000; 56524; 56525; 56530; 56531; 62110; 62900; 70005

== ENCOUNTER → 2018-02-22 | Outpatient (CLI) | payer OTHER ==
[~2018-02-22] MED LIST changes: +ATIVAN1 MG PO; +PERCOCET PO
== END ==
LOC: CAT 06:24
DX: K40.90 Unilateral inguinal hernia, without obstruction or gangrene, not specified as recurrent (principal); K21.9 Gastro-esophageal reflux disease without esophagitis; J98.11 Atelectasis; I12.0 Hypertensive chronic kidney disease with stage 5 chronic kidney disease or end stage renal disease; N18.6 End stage renal disease; J98.4 Other disorders of lung; I25.10 Atherosclerotic heart disease of native coronary artery without angina pectoris; M47.896 Other spondylosis, lumbar region; I77.811 Abdominal aortic ectasia; I70.0 Atherosclerosis of aorta; M25.78 Osteophyte, vertebrae; R53.1 Weakness; E78.5 Hyperlipidemia, unspecified

== ENCOUNTER 2018-03-01 05:45 | Inpatient (IN) | payer OTHER ==
[~2018-03-01] VITALS: Ht 172.7 cm; Wt 50.6 kg
[2018-03-01] VITALS (7 sets, daily range): BP systolic 150–214; BP diastolic 77–115
--- NOTE | ~2018-03-01 | HC ---
[facility] [place] [address] CONSULTATION Name: MAGALIE MOONEY Room #: 463-P [facility] Ruby Cee#: [id number] Admission: 03/02/18 Attend Phys: Irving Bunch MD Discharge: Date of : 38 Report #: [id number] THIS REPORT FOR: //name// CC: Zohra Bunch DATE OF SERVICE: 03/02/2018 REASON FOR THE CONSULTATION: End-stage renal disease. REASON FOR THE PRESENTATION: Post-laparoscopic hernia repair. HISTORY OF PRESENT ILLNESS: A well-known patient to me. He is an end-stage renal disease, maintained on hemodialysis, initiated in the last couple of months. He has long-standing chronic kidney disease, coronary artery disease. He is dialyzing every Sunday, and Sunday. He was admitted yesterday for laparoscopic hernial repair. I am being asked to manage his end-stage related disease issues. He recently had right hip fracture and this was operated upon. He has what seems to be some cognitive impairment. He is minimally communicative when I interviewed him this morning. PAST MEDICAL HISTORY: 1. End-stage renal disease. 2. Hypertension. 3. Hip fracture post-repair and prosthesis. 4. Coronary artery disease. 5. Anemia. ALLERGIES: PENICILLIN. FAMILY HISTORY: Hypertension. SOCIAL HISTORY: He is . He used to work for the [employer]. He quit smoking in 2009. No drug or alcohol abuse. MEDICATIONS: 1. Ranexa. 2. Nitroglycerin. 3. Aspirin. 4. Famotidine. 5. Acetaminophen. 6. Magnesium. REVIEW OF SYSTEMS: GENERAL: No fever or chills. CARDIOVASCULAR: No chest pain or palpitation. [facility] [address] [place] [address] CONSULTATION Name: MAGALIE MOONEY Room #: 463-P [facility] Ruby Cee#: [id number] Admission: 03/02/18 Attend Phys: Irving Bunch MD Discharge: Date of : 38 Report #: [id number] PULMONARY: No cough or hemoptysis. GASTROINTESTINAL: No nausea or vomiting. GENITOURINARY: Still makes some urine. PHYSICAL EXAMINATION: GENERAL: The patient is socially withdrawn. VITAL SIGNS: Blood pressure is elevated at 161/80. HEAD AND NECK: No jugular venous distention, no bruit, no thyromegaly. CHEST: Clear to auscultation bilaterally. CARDIOVASCULAR: Regular with no rub. ABDOMEN: Soft, nontender with no hepatosplenomegaly. Scars from his laparoscopic hernia repair. LOWER EXTREMITIES: No edema. LABORATORY DATA: Laboratory values reviewed. Sodium 133, potassium 5.3, hemoglobin 11.9. ASSESSMENT, IMPRESSION AND PLAN: 1. End-stage renal disease. 2. Status post laparoscopic hernia repair. 3. Hypertension. 4. Coronary artery disease. 5. Hyponatremia. 6. Hyperkalemia. 7. Dialysis will be arranged for the patient today. 8. Discontinue IV fluids. 9. Low K bath. 10. Routine post-surgical care per surgical team. <ELECTRONICALLY SIGNED> By: Raymundo Spaulding MD 03/04/18 0634 0751 0813 Raymundo Spaulding MD /nt
--- NOTE | ~2018-03-01 | O ---
[facility] [place] [address] [address] OPERATIVE REPORT Name: MAGALIE MOONEY Room #: 463-P [facility] IN M.R.#: [id number] Admission: 03/05/18 Attend Phys: Irving Bunch MD Discharge: 03/05/18 Date of : 38 Report #: [id number] THIS REPORT FOR: //name// CC: Irving Bunch DATE OF SERVICE: 03/01/2018 PREOPERATIVE DIAGNOSES: 1. Incarcerated left inguinal hernia. 2. Small right inguinal hernia. POSTOPERATIVE DIAGNOSES: 1. Incarcerated, sliding type, indirect left inguinal hernia containing sigmoid colon. 2. Small right indirect inguinal hernia. PROCEDURES PERFORMED: 1. Laparoscopic transabdominal preperitoneal (TAMICA) repair of a sliding type, indirect left inguinal hernia with mesh. 2. Laparoscopic transabdominal preperitoneal (TAMICA) repair of an indirect right inguinal hernia with mesh. SURGEON: Zohra Chang M.D. WOOD REPATCHER: ABHAY Flores. ANESTHESIA: General endotracheal anesthesia. ESTIMATED BLOOD LOSS: Minimal (less than 5 mL). COMPLICATIONS: None appreciated. SPECIMENS: None. INDICATIONS: The patient is an 78-year-old male who has had significant bulge and discomfort in the left groin space with CT scan findings of an incarcerated hernia containing sigmoid colon that did not appear grossly obstructed. There was a very small right inguinal hernia as well seen on CT per my review and on physical exam, this was confirmed and as such, indication was for laparoscopic repair with findings as noted above. DESCRIPTION OF PROCEDURE: After explaining the risks, benefits and alternatives of the procedure with the patient in detail in the preoperative holding area and obtaining written consent, the patient was brought to the operating room and placed supine on the operating room table. After conducting a thorough timeout procedure, verifying correct patient and procedure, the patient was given [address] [address] OPERATIVE REPORT Name: MAGALIE MOONEY Room #: 463-P [facility] IN M.R.#: [id number] Admission: 03/05/18 Attend Phys: Irving Bunch MD Discharge: 03/05/18 Date of : 38 Report #: [id number] general endotracheal anesthesia. Once adequate anesthesia was obtained, his SCDs were hooked up to pneumatic compression device. He was given a preoperative dose of antibiotics in line with the SCIP protocol. The patient's abdomen was prepped and draped in standard surgical sterile fashion. 5 mL of 0.5% Marcaine with epinephrine were used to anesthetize the skin in the supraumbilical location. A #15 bladed scalpel was used to create a 1 cm transverse skin incision at this location. A 12 mm Visiport was placed over 0 degree 5 mm laparoscope and was introduced through this incision site. Once intra-abdominal placement was verified visually, the obturator for the trocar and laparoscope were both removed and the abdomen was insufflated to 15 mmHg using carbon dioxide gas. The laparoscope was changed to a 5-mm 30-degree laparoscope, which was reintroduced through this trocar. The entire abdomen was evaluated to ensure no injury upon entry. The patient was now placed in Trendelenburg position and the groins were evaluated. We had immediate evidence of sigmoid colon incarcerated within the left inguinal hernia as well as a small right inguinal hernia being present as well. I now placed two 5 mm trocars, one in the right flank, one in the left flank, both slightly cephalad to the umbilicus at the anterior axillary line on each side. These were placed under direct vision after anesthetizing the skin at each location with 5 mL of 0.5% Marcaine with epinephrine and I had created small skin nicks using #15 bladed scalpel. We turned our attention to the more symptomatic left groin side first. A hook electrocautery was used to score the peritoneum from the posterior aspect of the anterior superior iliac spine medially across the medial umbilical ligament. Once I had scored the peritoneum, attempts at reducing the colon were unsuccessful with just laparoscopic graspers alone and as such, I employed both laparoscopic graspers to attempt to reduce it as well as manual external pressure and ultimately, I was able to reduce the healthy colon back into the abdomen. There was no evidence of ischemia, serosal injury or defect whatsoever. The colon itself immediately wanted to traverse back down into the inguinal canal and as it showed evidence of a sliding type hernia. The hook electrocautery was now used to take down the peritoneum in the left groin from the place where I scored across the abdominal wall and the peritoneal flap was taken down all the way as low as possible and the pelvic brim. This was done while controlling the hernia sac to ensure no holes were made in the hernia sac itself and ultimately once I carried this all the way down as low in the pelvic brim as possible, the entire hernia defect was reduced with the hernia sac being contiguous with the outer wall of the sigmoid colon again consistent with a sliding type hernia. I selected a piece of ProGrip mesh tailored to the left groin space. This was rolled up, placed in the preperitoneal space through the 12 mm port by placing laparoscope in the right flank trocar. This was placed under direct vision into the left groin space for the trocar was then replaced back in the infraumbilical trocar and maneuvered it in the appropriate position where it was pressed into the abdominal wall and unrolled inferiorly giving me excellent overlap outside the hernia defect in question. The SecureStrap absorbable fixation device was used to tack this to the abdominal wall in several locations as well as to Geradr's ligament simply because the hernia [facility] [address] [place] [address] OPERATIVE REPORT Name: MAGALIE MOONEY Room #: 463-P [facility] IN .R.#: [id number] Admission: 03/05/18 Attend Phys: Irving Bunch MD Discharge: 03/05/18 Date of : 38 Report #: [id number] defect was so substantially large in size. I then proceeded to reperitonealize the left groin space with the SecureStrap absorbable fixation device to ensure no mesh was exposed to the intra-abdominal domain. We now turned our attention to the right groin space. In similar fashion, I scored the peritoneum and created the preperitoneal space. This was carried as low in the pelvic brim as possible reducing the indirect hernia sac once again. Another piece of ProGrip mesh at this time tailored to the right groin space was rolled up, placed in the abdomen through the 12 mm port in similar fashion maneuvered into the position in the right groin space was pressed into the abdominal wall and unrolled inferiorly. Again, this gave us excellent overlap outside the hernia defect in question. I proceeded to reperitonealize the right groin space in similar fashion to ensure no mesh exposure to the intra-abdominal domain. It should be noted that all cord structures and both groins were identified, preserved and uninjured throughout. Photodocumentation of the hernia defect as well as its corresponding mesh repair were taken and provided to the patient and the permanent medical record. One final evaluation of the intra-abdominal domain showed no further evidence of pathology. The colon appeared healthy. There was no propensity to reherniate at this juncture. The laparoscope was placed in the left flank and the supraumbilical fascial incision was closed using 0 PDS suture on the Abe-Kalina suture passer device under direct vision. This was tied down under direct vision. The abdomen was fully desufflated. All remaining trocars were removed under direct vision. A 4-0 Monocryl was used in a standard subcuticular fashion for all skin incisions and Dermabond glue was applied to all skin wounds. At the end of the procedure, all instrument, needle and sponge counts were correct. The patient tolerated the procedure without incident, was awakened in the operating room, and transitioned to the recovery room in stable condition with no apparent complications. <ELECTRONICALLY SIGNED> By: Zohra Chang MD, FACS 03/11/18 0750 2214 [id number] Zohra Chang MD, FACS /nt
[~2018-03-01 05:45] MED LIST changes: +CITRATE OF MAG296 M1 PO; +MILK OF MA400 MG/5 M PO; +MIRALAX17 G1 PO; +NEPHROCAPS SOFT1 CAP PO; +SYSTANE 0.3-0.1 EACH OPHTHALMIC; +TYLENOL325 M1 PO; +VITAMIN D31000 UNI2 PO
[2018-03-01 13:25] LABS: CALCIUM 9.6 mg/dL (8.5-10.1); CREATININE 4.5 mg/dL (0.7-1.3); POTASSIUM 4.7 mmol/L (3.5-5.1)
[2018-03-01 13:32] LABS: ALBUMIN 3.5 g/dL (3.4-5.0); TOTAL BILIRUBIN 0.9 mg/dL (<0.1-1.0); TOTAL PROTEIN 7.6 g/dL (6.4-8.2)
[2018-03-02 04:12] VITALS: BP 161/80
[2018-03-02 05:03] LABS: HEMOGLOBIN 11.9 gm/dL (14.0-18.0); MCH 29.4 pg (26.0-34.0); MCV 89.3 fL (80.0-100.0); RBC 4.03 mil/uL (4.50-6.00); RDW 18.6 % (10.5-14.5); WBC 10.4 thou/uL (4.0-11.0)
[2018-03-02 05:06] LABS: CALCIUM 9.3 mg/dL (8.5-10.1); POTASSIUM 5.3 mmol/L (3.5-5.1)
[2018-03-02 05:07] LABS: CREATININE 5.6 mg/dL (0.7-1.3)
[2018-03-02 08:32] VITALS: BP 195/92
[2018-03-02 16:00] VITALS: BP 152/77
[2018-03-02 19:21] VITALS: BP 174/94
[2018-03-03 04:05] VITALS: BP 170/92
[2018-03-03 05:59] LABS: ABSOLUTE NEUTROPHILS 10.1 thou/uL (1.4-8.2); BASOPHILS 0.3 % (0.0-2.0); EOSINOPHILS 0.4 % (0.0-3.0); HEMATOCRIT 34.8 % (42.0-52.0); HEMOGLOBIN 11.2 gm/dL (14.0-18.0); LYMPHOCYTES 10.2 % (24.0-44.0); MCH 28.9 pg (26.0-34.0); MCHC 32.2 g/dL (28.0-37.0); MCV 89.8 fL (80.0-100.0); MONOCYTES 8.6 % (1.0-8.0); PLATELET COUNT 371 thou/uL (150-400); POLYS 80.5 % (36.0-66.0); RBC 3.87 mil/uL (4.50-6.00); RDW 18.5 % (10.5-14.5); WBC 12.6 thou/uL (4.0-11.0)
[2018-03-03 06:07] LABS: CALCIUM 9.3 mg/dL (8.5-10.1); POTASSIUM 4.6 mmol/L (3.5-5.1)
[2018-03-03 06:09] LABS: CREATININE 4.5 mg/dL (0.7-1.3)
[2018-03-03 07:31] VITALS: BP 182/89
[2018-03-03 15:46] VITALS: BP 182/102
[2018-03-03 20:28] VITALS: BP 189/117
[2018-03-04 03:37] VITALS: BP 165/71
[2018-03-04 06:31] LABS: ABSOLUTE NEUTROPHILS 8.1 thou/uL (1.4-8.2); BASOPHILS 0.6 % (0.0-2.0); EOSINOPHILS 1.6 % (0.0-3.0); HEMATOCRIT 34.2 % (42.0-52.0); HEMOGLOBIN 11.3 gm/dL (14.0-18.0); LYMPHOCYTES 14.2 % (24.0-44.0); MCH 29.8 pg (26.0-34.0); MCV 90.4 fL (80.0-100.0); MONOCYTES 6.9 % (1.0-8.0); PLATELET COUNT 339 thou/uL (150-400); POLYS 76.7 % (36.0-66.0); RBC 3.78 mil/uL (4.50-6.00); WBC 10.6 thou/uL (4.0-11.0)
[2018-03-04 06:51] LABS: CALCIUM 9.4 mg/dL (8.5-10.1); POTASSIUM 4.7 mmol/L (3.5-5.1)
[2018-03-04 06:52] LABS: CREATININE 6.6 mg/dL (0.7-1.3)
[2018-03-04 08:43] VITALS: BP 175/77
[2018-03-04 15:28] VITALS: BP 170/79
[2018-03-04 15:43] VITALS: BP 130/66
[2018-03-04 20:36] VITALS: BP 176/78
[2018-03-05 04:17] VITALS: BP 175/76
[2018-03-05 07:50] VITALS: BP 176/77
== END 2018-03-05 16:29 | DRG 350 ==
LOC: OR 05:45 → TBA 05:45 → OR 09:01 → 4W 18:23 → OR 03-02 08:02 → 4W 03-02 08:02
PROVIDERS: Surgery
PROC: 0YUA4JZ Supplement Bilateral Inguinal Region with Synthetic Substitute, Percutaneous Endoscopic Approach (ICD-10-PCS; principal; 2018-03-01)
PROC: 5A1D70Z Performance of Urinary Filtration, Intermittent, Less than 6 Hours Per Day (ICD-10-PCS; 2018-03-02)
PROC: 5A1D70Z Performance of Urinary Filtration, Intermittent, Less than 6 Hours Per Day (ICD-10-PCS; 2018-03-05)
DX: K40.00 Bilateral inguinal hernia, with obstruction, without gangrene, not specified as recurrent (principal); N18.6 End stage renal disease; E87.1 Hypo-osmolality and hyponatremia; I12.0 Hypertensive chronic kidney disease with stage 5 chronic kidney disease or end stage renal disease; K21.9 Gastro-esophageal reflux disease without esophagitis; I25.10 Atherosclerotic heart disease of native coronary artery without angina pectoris; E87.5 Hyperkalemia; D72.829 Elevated white blood cell count, unspecified; F03.90 Unspecified dementia, unspecified severity, without behavioral disturbance, psychotic disturbance, mood disturbance, and anxiety; D64.9 Anemia, unspecified; Z96.1 Presence of intraocular lens; Z88.0 Allergy status to penicillin; Z99.2 Dependence on renal dialysis; Z87.891 Personal history of nicotine dependence; Z88.8 Allergy status to other drugs, medicaments and biological substances; Z98.42 Cataract extraction status, left eye; Z98.41 Cataract extraction status, right eye; Z79.2 Long term (current) use of antibiotics; Z79.899 Other long term (current) drug therapy; Z82.49 Family history of ischemic heart disease and other diseases of the circulatory system

== ENCOUNTER 2018-03-18 16:05 | Inpatient (IN) | payer OTHER ==
[~2018-03-18] VITALS: Ht 170.2 cm; Wt 45.8 kg
--- NOTE | ~2018-03-18 | HC ---
[facility] [address] [place] [address] CONSULTATION Name: MAGALIE MOONEY Room #: 218-P ADM IN M.R.#: [id number] Admission: 03/18/18 Attend Phys: Irving Bunch MD Discharge: Date of : 38 Report #: [id number] THIS REPORT FOR: //name// CC: Allison Bunch REASON FOR CONSULTATION: End-stage renal disease. REASON FOR PRESENTATION: Fever and mental status issues. HISTORY OF PRESENT ILLNESS: This is a well known patient to me. He had been started on dialysis a couple of months ago. Unfortunately, his condition has deteriorated. He is staying in the [facility]. He usually dialyzes on Sunday, Sunday and Sunday. He was in the [facility] yesterday and started to have some low blood pressure after about an hour of treatment. He also spiked a temperature. Nurses reported that he has acute mental status issues. He was refusing food in the dialysis unit. He has significantly deteriorated since he was started on dialysis with very significant weight loss. On presentation yesterday, he was found to have an elevated white blood cell count. He received a 1-hour of treatment yesterday. I am being asked to evaluate his dialysis need. PAST MEDICAL HISTORY: 1. End-stage renal disease, maintained on hemodialysis. 2. Hypertension. 3. Tremor. 4. Vertebroplasty. 5. Recent left hip fracture with repair. 6. AV fistula. MEDICATIONS: 1. Atorvastatin. 2. Aspirin. 3. Acetaminophen. 4. Magnesium hydroxide. 5. Famotidine. REVIEW OF SYSTEMS: Unobtainable. Every time I asked the patient about the review of systems, he tells me that I do not know. SOCIAL HISTORY: He resides in the [facility]. No drug or alcohol abuse. 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 FAMILY HISTORY: Unobtainable given the patient's mental status. PHYSICAL EXAMINATION: GENERAL: He is confused, lethargic. [facility] [address] [place] [address] CONSULTATION Name: MAGALIE MOONEY Room #: 218-P [facility] IN M.R.#: [id number] Admission: 03/18/18 Attend Phys: Irving Bunch MD Discharge: Date of : 38 Report #: [id number] VITAL SIGNS: Temperature is 36.3, blood pressure 148/65, respiratory rate 16. HEAD AND NECK: No jugular venous distention. Cachectic and emaciated. CHEST: Decreased air entry bilaterally. CARDIOVASCULAR: No rub detected. ABDOMEN: Soft, nontender with no hepatosplenomegaly. LOWER EXTREMITIES: No edema. UPPER EXTREMITIES: AV fistula present and functioning. LABORATORY DATA: Laboratory values reviewed. Leukocytosis. BUN is 50, creatinine is 5.7. Low albumin. +2 protein in the urine with negative other findings. ASSESSMENT, IMPRESSION AND PLAN: 1. End-stage renal disease. 2. Hypertension. 3. Fever in the dialysis unit. 4. Mental status changes. 5. Leukocytosis. 6. The patient's laboratory values are acceptable for now. I do not plan on dialyzing him today. 7. Fever and leukocytosis workup including septic workup, blood cultures. 8. I am not really sure about his baseline mental status and I do not see any change in his mental status since the last time I saw him. Unfortunately, his health condition has been deteriorating in a rather rapid way. His nutritional status has also worsened and we will need to work on those issues. 9. Resume his aspirin. 10. Resume atorvastatin. 11. Next dialysis will be on Sunday. <ELECTRONICALLY SIGNED> By: Raymundo Spaulding MD 03/20/18 0838 0858 1155 Raymundo Spaulding MD /nt
--- NOTE | ~2018-03-18 | EKG ---
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
[2018-03-18 16:06] VITALS: BP 130/60
[2018-03-18 17:51] LABS: BE(vivo) 7.8 mmol/L (-2 to +3); PCO2 38.1 mmHg (35.0-45.0); PO2 139.6 mmHg (80.0-100.0); pH 7.528 (7.360-7.450)
[2018-03-18 17:56] LABS: ABSOLUTE NEUTROPHILS 16.6 thou/uL (1.4-8.2); BASOPHILS 0.6 % (0.0-2.0); EOSINOPHILS 0.1 % (0.0-3.0); HEMATOCRIT 32.9 % (42.0-52.0); LYMPHOCYTES 5.4 % (24.0-44.0); MCHC 33.3 g/dL (28.0-37.0); MCV 89.9 fL (80.0-100.0); MONOCYTES 3.6 % (1.0-8.0); PLATELET COUNT 332 thou/uL (150-400); POLYS 90.3 % (36.0-66.0); RBC 3.66 mil/uL (4.50-6.00); RDW 18.6 % (10.5-14.5); WBC 18.4 thou/uL (4.0-11.0)
[2018-03-18 18:02] LABS: CALCIUM 8.6 mg/dL (8.5-10.1); CREATININE 5.7 mg/dL (0.7-1.3); POTASSIUM 3.7 mmol/L (3.5-5.1)
[2018-03-18 18:11] LABS: ALBUMIN 2.7 g/dL (3.4-5.0); TROPONIN-I 0.15 ng/mL (<0.06)
[2018-03-18 18:43] LABS: URINE BLOOD NEGATIVE (Negative); URINE CLARITY CLEAR; URINE COLOR YELLOW; URINE GLUCOSE-RANDOM* NEGATIVE (Negative); URINE KETONES TRACE (Negative); URINE LEUKOCYTES-REFLEX NEGATIVE (Negative); URINE NITRITE-REFLEX NEGATIVE (Negative); URINE PROTEIN (DIPSTICK) 2+ (Negative); URINE SPECIFIC GRAVITY 1.025 (1.005-1.035); URINE UROBILINOGEN 0.2 E.U./dl (0.2-1.0)
[2018-03-18 18:46] LABS: ICTOTEST (BILI CONFIRMATORY) Negative (Negative); URINE BILIRUBIN NEGATIVE (Negative)
[2018-03-18 19:00] LABS: BACTERIA-REFLEX 1-9 Few /HPF (None Seen); CASTS None Seen /LPF (None Seen); CRYSTALS None Seen /LPF (None Seen); SQUAMOUS None Seen /LPF (0-3); URINE WBC-REFLEX None Seen /HPF (0-5)
[2018-03-18 19:01] LABS: URINE RBC None Seen /HPF (0-2)
[2018-03-18 19:05] LABS: ANISOCYTOSIS 2+; BURR CELLS OCCASIONAL; POLYCHROMASIA SLIGHT
[2018-03-18] MEDS ORDERED: VITAMIN B-12500 MCG PO (21:09)
[2018-03-18] MEDS ORDERED: LIPITOR 20 MG T20 M1 PO (21:27)
[2018-03-18] MEDS ORDERED: [UNRECOGNIZED DRUG - OTHER] PO (21:28)
[2018-03-18 23:30] VITALS: BP 137/85
[2018-03-18 23:45] VITALS: BP 151/62
[2018-03-19 05:13] VITALS: BP 161/74
[2018-03-19 08:04] VITALS: BP 148/65
[2018-03-19 15:20] VITALS: BP 143/60
[2018-03-19 19:21] VITALS: BP 148/66
[2018-03-19 20:05] VITALS: BP 104/47
[2018-03-20 04:45] VITALS: BP 165/87
[2018-03-20 07:20] VITALS: BP 172/75
[2018-03-20 15:45] VITALS: BP 149/79
[2018-03-20 19:55] VITALS: BP 174/84
[2018-03-21 04:50] VITALS: BP 182/97
[2018-03-21 08:10] VITALS: BP 192/94
[2018-03-21 11:55] VITALS: BP 169/78
== END 2018-03-21 17:40 | DRG 871 ==
LOC: ER 16:05 → EROBS 19:37 → 2N 19:37
PROVIDERS: Emergency Medicine
PROC: B54NZZA Ultrasonography of Left Upper Extremity Veins, Guidance (ICD-10-PCS; principal; 2018-03-18)
PROC: 05HY33Z Insertion of Infusion Device into Upper Vein, Percutaneous Approach (ICD-10-PCS; principal; 2018-03-18)
PROC: 5A1D70Z Performance of Urinary Filtration, Intermittent, Less than 6 Hours Per Day (ICD-10-PCS; 2018-03-19)
DX: A41.9 Sepsis, unspecified organism (principal); G93.40 Encephalopathy, unspecified; N18.6 End stage renal disease; S73.006A Unspecified dislocation of unspecified hip, initial encounter; N39.0 Urinary tract infection, site not specified; R64 Cachexia; Z68.1 Body mass index [BMI] 19.9 or less, adult; I12.9 Hypertensive chronic kidney disease with stage 1 through stage 4 chronic kidney disease, or unspecified chronic kidney disease; Z88.0 Allergy status to penicillin; Z88.8 Allergy status to other drugs, medicaments and biological substances; Z87.891 Personal history of nicotine dependence; X58.XXXA Exposure to other specified factors, initial encounter; Y93.89 Activity, other specified; Y92.89 Other specified places as the place of occurrence of the external cause; Y99.8 Other external cause status
CPT/HCPCS: 10081; 32100